=== PATIENT | male | born 1960 | race Caucasian/White ===

== ENCOUNTER 2018-04-02 18:27 | Emergency (ER) | payer OTHER ==
[~2018-04-02] VITALS: Ht 152.4 cm; Wt 96.2 kg
[2018-04-02 18:40] VITALS: Ht 152.4 cm; Wt 96.2 kg
[2018-04-02 20:35] VITALS: BP 123/71
== END 2018-04-02 20:35 | disposition home or self-care (01) ==
LOC: ED 18:27
DX: G89.29 Other chronic pain (principal); M54.5 Low back pain
CPT/HCPCS: 20552; J1885; J2001